=== PATIENT | male | born 1980 | race Caucasian/White ===

== ENCOUNTER 2016-07-02 00:25 | Emergency (ER) | payer OTHER ==
[2016-07-02 00:41] VITALS: TEMP 98.1
--- NOTE | 2016-07-02 01:18 | XR ---
EXAMINATION TYPE: XR finger LT DATE OF EXAM: 07/02/2016 1:13 AM COMPARISON: NONE HISTORY: Puncture wound TECHNIQUE: 3 views FINDINGS: There is soft tissue swelling around the end of the thumb. I see no fracture nor dislocatio n. There is no sign of a foreign body. IMPRESSION: Soft tissue swelling. No fracture seen.
[2016-07-02] MEDS ORDERED: HYDROcodone/APAP 5-325MG 1 EACH TAB PO STA (01:33)
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
[2016-07-02] MEDS ORDERED: SULFAMETHOX-TMP 800-160MG 1 EACH TAB PO STA (02:28)
[2016-07-02] MEDS ORDERED: MORPHINE SULFATE 10 MG/ML SYRINGE IM STA (02:28)
[2016-07-02 02:47] VITALS: BP 159/94; PULSE 68; RESP 18
== END 2016-07-02 02:47 | disposition home or self-care (01) ==
LOC: EC 00:25
DX: L03.012 Cellulitis of left finger (principal); Z88.8 Allergy status to other drugs, medicaments and biological substances; Z87.891 Personal history of nicotine dependence; Z86.14 Personal history of Methicillin resistant Staphylococcus aureus infection
CPT/HCPCS: 99283; 96372; 26010; 87070; 87205; 87077; 87186; 73140; J2270

== ENCOUNTER 2016-08-26 21:22 | Emergency (ER) | payer OTHER ==
[2016-08-26 21:37] VITALS: RESP 20; TEMP 98.2
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
[2016-08-26 23:02] VITALS: BP 151/91; PULSE 65
== END 2016-08-26 23:00 | disposition home or self-care (01) ==
LOC: EC 21:22
DX: S00.03XA Contusion of scalp, initial encounter (principal); Z87.891 Personal history of nicotine dependence; Z88.8 Allergy status to other drugs, medicaments and biological substances; Y04.0XXA Assault by unarmed brawl or fight, initial encounter; Y92.89 Other specified places as the place of occurrence of the external cause
CPT/HCPCS: 70450; 70486; 72125; 99284

== ENCOUNTER 2018-03-19 11:10 | Emergency (ER) | payer OTHER ==
[2018-03-19 11:43] VITALS: BP 118/55; PULSE 106; RESP 18; TEMP 98.3
[2018-03-19] MEDS ORDERED: KETOROLAC 30 MG/ML 1 ML VIAL IM STA (12:07)
[2018-03-19] MEDS ORDERED: ORPHENADRINE 30 MG/ML 2 ML VIAL IM STA (12:07)
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
== END 2018-03-19 13:10 | disposition home or self-care (01) ==
LOC: EC 11:10
DX: M54.5 Low back pain (principal); G89.29 Other chronic pain; M51.36 Other intervertebral disc degeneration, lumbar region; F17.200 Nicotine dependence, unspecified, uncomplicated; Q05.9 Spina bifida, unspecified; Z86.14 Personal history of Methicillin resistant Staphylococcus aureus infection; Z88.8 Allergy status to other drugs, medicaments and biological substances
CPT/HCPCS: 99283; 96372 ×2; J2360; J1885

== ENCOUNTER 2018-03-20 22:20 | Emergency (ER) | payer OTHER ==
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
[2018-03-21 01:11] LABS: Amphetamine Screen,Urine Detected (NotDetected); Barbiturate Screen,Urine Not Detected (NotDetected); Benzodiazepines Screen,Urine Not Detected (NotDetected); Cocaine Screen,Urine Not Detected (NotDetected); Methadone Screen, Urine Not Detected (NotDetected); Opiate Screen,Urine Not Detected (NotDetected); Oxycodone Screen, Urine Not Detected (NotDetected); Phencyclidine Screen,Urine Not Detected (NotDetected); Tricyclic Antidepressant,Urine Not Detected (NotDetected); Urn Cannabinoid Scrn Detected (NotDetected)
[2018-03-21 03:55] VITALS: BP 126/61; PULSE 74; RESP 16; TEMP 97.4
== END 2018-03-21 03:56 | disposition home or self-care (01) ==
LOC: EC 22:20
DX: F32.9 Major depressive disorder, single episode, unspecified (principal); F41.9 Anxiety disorder, unspecified; F17.200 Nicotine dependence, unspecified, uncomplicated; Z86.14 Personal history of Methicillin resistant Staphylococcus aureus infection; Z88.8 Allergy status to other drugs, medicaments and biological substances; Z59.0 Homelessness
CPT/HCPCS: 80306; 82075; 99284

== ENCOUNTER 2018-04-15 21:13 | Emergency (ER) | payer OTHER ==
[2018-04-15 21:45] VITALS: RESP 18
[2018-04-15] MEDS ORDERED: methylPREDNISolone SOD SUCCI 125 MG/2 ML VIAL IM ONE (21:59)
[2018-04-15] MEDS ORDERED: KETOROLAC 30 MG/ML 1 ML VIAL IM STA (21:59)
[2018-04-15] MEDS ORDERED: CYCLOBENZAPRINE 10MG STARTER 3 TAB BTL PO STA (21:59)
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
[2018-04-15 22:28] VITALS: BP 154/85; PULSE 90; TEMP 97
== END 2018-04-15 22:27 | disposition home or self-care (01) ==
LOC: EC 21:13
DX: G89.29 Other chronic pain (principal); M54.5 Low back pain; M54.12 Radiculopathy, cervical region; F17.200 Nicotine dependence, unspecified, uncomplicated; Z88.8 Allergy status to other drugs, medicaments and biological substances
CPT/HCPCS: 99283; 96372 ×2; J2930; J1885

== ENCOUNTER 2018-06-02 16:51 | Emergency (ER) | payer OTHER ==
[2018-06-02] MEDS ORDERED: KETOROLAC 30 MG/ML 1 ML VIAL IVP STA (17:19)
[2018-06-02] MEDS ORDERED: guaiFENesin-DM 600/30MG 1 EACH TAB.ER.12H PO STA (17:19)
[2018-06-02] MEDS ORDERED: SODIUM CHLORIDE 0.9% 1,000 ML IV ONE (17:19)
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
[2018-06-02 18:20] LABS: Basophils % (A) 0 %; Eosinophils # (A) 0.2 k/uL (0-0.7); Eosinophils % (A) 4 %; HCT 39.1 % (39.0-53.0); HGB 13.2 gm/dL (13.0-17.5); Lymphocytes # (A) 0.7 k/uL (1.0-4.8); Lymphocytes % (A) 11 %; MCH 32.6 pg (25.0-35.0); MCHC 33.6 g/dL (31.0-37.0); MCV 96.9 fL (80.0-100.0); Mean Platelet Volume 6.5; Monocytes # (A) 0.3 k/uL (0-1.0); Monocytes % (A) 4 %; Neutrophils # (A) 4.8 k/uL (1.3-7.7); Neutrophils % (A) 80 %; Platelet Count 368 k/uL (150-450); RBC 4.04 m/uL (4.30-5.90); RDW 13.7 % (11.5-15.5)
[2018-06-02 18:33] LABS: ALT 47 U/L (21-72); AST 47 U/L (17-59); Alkaline Phosphatase 66 U/L (38-126); Anion Gap 4 mmol/L; Blood Urea Nitrogen 14 mg/dL (9-20); Calcium 8.9 mg/dL (8.4-10.2); Carbon Dioxide 27 mmol/L (22-30); Chloride 106 mmol/L (98-107); Glucose 103 mg/dL (74-99); Potassium 4.3 mmol/L (3.5-5.1); Sodium 137 mmol/L (137-145); Total Bilirubin 0.3 mg/dL (0.2-1.3); Total Protein 5.3 g/dL (6.3-8.2)
[2018-06-02 18:36] LABS: INR 0.8 (<1.2); Partial Thromboplastin Time 25.2 sec (22.0-30.0); Prothrombin Time 9.4 sec (9.0-12.0)
[2018-06-02 18:40] LABS: D-Dimer 0.85 mg/L FEU (<0.60)
--- NOTE | 2018-06-02 20:04 | CT ---
CT CHEST FOR PULMONARY EMBOLISM. EXAMINATION TYPE: CT chest angio for PE DATE OF EXAM: 06/02/2018 INDICATION: chest pain CT DLP: 282.9 mGycm, Automated exposure control for dose reduction was used. CONTRAST: Patient injected with 100 mL of Isovue 370. COMPARISON: None TECHNIQUE: CT of the chest is performed on a spiral scan at 2 mm thick sections. Study is performed with intravenous contrast timed for evaluation for pulmonary embolism. This will limit additional po rtions of the evaluation. 3-D MIP images reconstructed by the technologist are reviewed on the compu ter in the coronal and sagittal planes. FINDINGS: No persistent filling defects are evident to suggest an acute pulmonary embolism. No mediastinal or hilar adenopathy enlarged by CT criteria is evident. The ascending aorta diameter at the level of the main pulmonary artery is 3.2 cm. The main pulmonary artery diameter at the bifur cation is 2.6 cm. There is minimal compressive atelectasis within the dependent portions of the lung bases. Lungs other thomas appear clear. Limited CT section through the upper abdomen. There is a large amount of debris within the stomach. IMPRESSIONS: 1. No acute pulmonary embolism.
[2018-06-02 20:06] VITALS: RESP 18
--- NOTE | 2018-06-02 20:35 | XR ---
EXAMINATION TYPE: XR chest 2V DATE OF EXAM: 06/02/2018 COMPARISON: 06/26/2015 INDICATION: Pain TECHNIQUE: Frontal and lateral views of the chest are obtained. FINDINGS: The heart size is normal. The pulmonary vasculature is normal. Subtle infiltrate is at the right base. Correlate for early pneumonia or atelectasis. IMPRESSION: 1. There may be an early right lower lobe pneumonia. Clinical correlation is recommended. Follow-up c an be performed as clinically indicated.
[2018-06-02] MEDS ORDERED: ACETAMINOPHEN TAB 500 MG TAB PO STA (21:12)
[2018-06-02 21:23] VITALS: BP 130/95; PULSE 89; TEMP 98
== END 2018-06-02 21:23 | disposition home or self-care (01) ==
LOC: EC 16:51
DX: J20.9 Acute bronchitis, unspecified (principal); F17.210 Nicotine dependence, cigarettes, uncomplicated; Z71.6 Tobacco abuse counseling; Z59.0 Homelessness; Z88.8 Allergy status to other drugs, medicaments and biological substances; Z79.899 Other long term (current) drug therapy
CPT/HCPCS: 36415; 93005; 85379; 80053; 85025; 85610; 85730; 71046; 71275; 99284; 96374; 96361 ×3; J1885; Q9967

== ENCOUNTER 2018-07-12 16:20 | Emergency (ER) | payer OTHER ==
[2018-07-12 16:26] VITALS: BP 164/92; PULSE 99; RESP 18; TEMP 98.1
--- NOTE | 2018-07-12 17:26 | XR ---
Left hand 3 views. History pain. Comparison none. Findings There is soft tissue swelling around the hand. There is slight widening of the joint space between th e third and fourth base of the metacarpals. The carpal bones appear intact. Distal radius and ulna ap pear intact. IMPRESSION: Soft tissue swelling. Evidence of ligamentous tear at the base of the third and fourth metacarpals.
[2018-07-12] MEDS ORDERED: Acetaminophen-Codeine 300-30mg TAB PO STA (18:11)
[2018-07-12] MEDS ORDERED: IBUPROFEN 600 MG STARTER PACK 4 TAB BTL PO STA (18:11)
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
== END 2018-07-12 18:44 | disposition home or self-care (01) ==
LOC: EC 16:20
DX: S60.222A Contusion of left hand, initial encounter (principal); Q05.9 Spina bifida, unspecified; F17.200 Nicotine dependence, unspecified, uncomplicated; Z88.8 Allergy status to other drugs, medicaments and biological substances; Z86.14 Personal history of Methicillin resistant Staphylococcus aureus infection; Z87.81 Personal history of (healed) traumatic fracture; Z59.0 Homelessness; W19.XXXA Unspecified fall, initial encounter; Y92.009 Unspecified place in unspecified non-institutional (private) residence as the place of occurrence of the external cause
CPT/HCPCS: 29125; 99283

== ENCOUNTER 2019-12-03 19:08 | Emergency (ER) | payer OTHER ==
[2019-12-03] MEDS ORDERED: ASPIRIN 81 MG PO STA (19:32)
[2019-12-03] MEDS ORDERED: SODIUM CHLORIDE 0.9% 500 ML 500 ML IV STA (19:32)
[2019-12-03] MEDS ORDERED: ACETAMINOPHEN TAB 325 MG TAB PO STA (19:34)
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
--- NOTE | 2019-12-03 20:03 | XR ---
EXAMINATION TYPE: XR chest 2V DATE OF EXAM: 12/03/2019 COMPARISON: Chest pain for 3 weeks. HISTORY: Chest x-ray June 02, 2018. TECHNIQUE: Frontal and lateral views of the chest are obtained. FINDINGS: Overlying EKG leads currently. There is no focal air space opacity, pleural effusion, or pn eumothorax seen. The cardiac silhouette size remains within normal limits. The osseous structures are intact. IMPRESSION: No acute cardiopulmonary process. No significant change from prior.
[2019-12-03 20:11] LABS: Basophils % (A) 0 %; Eosinophils # (A) 0.1 k/uL (0-0.7); Eosinophils % (A) 2 %; HCT 44.7 % (39.0-53.0); HGB 15.4 gm/dL (13.0-17.5); Lymphocytes # (A) 1.5 k/uL (1.0-4.8); Lymphocytes % (A) 18 %; MCH 33.3 pg (25.0-35.0); MCHC 34.5 g/dL (31.0-37.0); MCV 96.4 fL (80.0-100.0); Mean Platelet Volume 7.2; Monocytes # (A) 0.4 k/uL (0-1.0); Monocytes % (A) 4 %; Neutrophils # (A) 6.1 k/uL (1.3-7.7); Neutrophils % (A) 74 %; Platelet Count 297 k/uL (150-450); RBC 4.64 m/uL (4.30-5.90); RDW 12.9 % (11.5-15.5); WBC 8.1 k/uL (3.8-10.6)
[2019-12-03 20:19] LABS: ALT 22 U/L (4-49); AST 34 U/L (17-59); African American GFR (CKD) >90 (>60 ml/min/1.73 sqM); Albumin 4.5 g/dL (3.5-5.0); Alkaline Phosphatase 53 U/L (38-126); Anion Gap 7 mmol/L; Blood Urea Nitrogen 16 mg/dL (9-20); Calcium 9.4 mg/dL (8.4-10.2); Carbon Dioxide 25 mmol/L (22-30); Chloride 105 mmol/L (98-107); Glucose 110 mg/dL (74-99); Magnesium 1.8 mg/dL (1.6-2.3); Non-African American GFR(CKD) >90 (>60 ml/min/1.73 sqM); Potassium 4.2 mmol/L (3.5-5.1); Sodium 137 mmol/L (137-145); Total Bilirubin 0.5 mg/dL (0.2-1.3); Total Protein 6.8 g/dL (6.3-8.2)
[2019-12-03 20:21] LABS: D-Dimer 0.18 mg/L FEU (<0.60); INR 0.9 (<1.2); Partial Thromboplastin Time 23.3 sec (22.0-30.0); Prothrombin Time 9.8 sec (9.0-12.0)
[2019-12-03 20:48] VITALS: BP 138/96; PULSE 67; RESP 19; TEMP 98
[2019-12-03] MEDS ORDERED: MORPHINE SULFATE 4 MG/ML SYRINGE IV STA (20:50)
== END 2019-12-03 21:58 | disposition home or self-care (01) ==
LOC: EC 19:08
DX: R07.89 Other chest pain (principal); M79.18 Myalgia, other site; R05 Cough; F17.200 Nicotine dependence, unspecified, uncomplicated; Z88.8 Allergy status to other drugs, medicaments and biological substances; Z86.14 Personal history of Methicillin resistant Staphylococcus aureus infection; Z20.828 Contact with and (suspected) exposure to other viral communicable diseases
CPT/HCPCS: 99285; 96374; 96361; 36415; 93005; 85379; 80053; 83735; 84484; 85025; 85610; 85730; 71046; U0003; J2270

== ENCOUNTER 2022-04-02 13:30 | Emergency (ER) | payer OTHER ==
[2022-04-02 14:22] VITALS: TEMP 98.5
[2022-04-02] MEDS ORDERED: KETOROLAC 15 MG/ML 1 ML VIAL IM STA (17:59)
[2022-04-02] MEDS ORDERED: ORPHENADRINE 30 MG/ML 2 ML VIAL IM STA (17:59)
[2022-04-02] MEDS ORDERED: PHENYLEPHRINE 0.25% NASAL SPRA 1 SPRAY/ML NASAL STA (18:00)
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
[2022-04-02] MEDS ORDERED: HYDROcodone/APAP 5-325MG 1 EACH TAB PO STA (19:10)
--- NOTE | 2022-04-02 19:22 | CT ---
EXAMINATION TYPE: CT facial bones wo con DATE OF EXAM: 04/02/2022 COMPARISON: 08/26/2016 HISTORY: Facial injury. Trauma. Pain. CT DLP: 618.8 mGycm Automated exposure control for dose reduction was used. Images obtained from the bottom of the mandible to the top of the frontal sinuses with no contrast. The mandibular ring is intact. The temporomandibular joints appear normal. The zygomatic arches appea r intact. There is a comminuted fracture of the nasal bone with some mild posterior displacement. The re is soft tissue swelling around the nasal bone. There is small mucous retention cyst left maxillary sinus. There is normal aeration of the temporal bones. There is mild mucosal thickening anterior eth moid air cells. There is increased density in the anterior nasopharynx consistent with blood clot and debris. There is no evidence of orbital blowout fracture. Orbital margins are intact. No retro-orbital mass. The maxillary spine is intact. Sphenoid bone appears normal. IMPRESSION: Nasal bone fracture. No other fracture seen.
--- NOTE | 2022-04-02 19:23 | XR ---
EXAMINATION TYPE: XR chest 2V DATE OF EXAM: 04/02/2022 COMPARISON: 12/03/2019 HISTORY: Fall. Chest pain TECHNIQUE: 2 views FINDINGS: Heart and mediastinum are normal. Lungs are clear. Diaphragm is normal. Bony thorax is inta ct. IMPRESSION: Normal chest. No change.
[2022-04-02] MEDS ORDERED: DIPH,PERTUS(ACELL)TETVAC-LF 0.5 ML VIAL IM ONE (19:24)
--- NOTE | 2022-04-02 19:24 | XR ---
EXAMINATION TYPE: XR lumbar spine 2 or 3V DATE OF EXAM: 04/02/2022 COMPARISON: 07/25/2011 HISTORY: Pain TECHNIQUE: 3 views FINDINGS: There is L5 spondylolysis. There is a second-degree L5-S1 spondylolisthesis. Displacement i s 1.5 cm. No compression fracture. Disc spaces are fairly normal. The sacroiliac joints are normal. IMPRESSION: There is L5-S1 spondylolisthesis that has progressed compared to old exam. No acute fract ure seen.
[2022-04-02 20:32] VITALS: BP 162/116; PULSE 86; RESP 16
== END 2022-04-02 20:58 | disposition home or self-care (01) ==
LOC: EC 13:30
DX: S60.811A Abrasion of right wrist, initial encounter (principal); I10 Essential (primary) hypertension; Z88.8 Allergy status to other drugs, medicaments and biological substances; W10.9XXA Fall (on) (from) unspecified stairs and steps, initial encounter
CPT/HCPCS: 99284; 96372 ×3; 72100; 71046; 70486; 90715; J2360; J1885

== ENCOUNTER 2022-04-06 15:45 | Observation (INO) | payer OTHER ==
[2022-04-06] MEDS ORDERED: SODIUM CHLORIDE 0.9% 1,000 ML IV ONE ×2 (16:01→19:48)
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
[2022-04-06] MEDS ORDERED: LORazepam 2 MG/ML INJ IV STA (17:30)
[2022-04-06] MEDS ORDERED: ZIPRASIDONE 20 MG VIAL IM STA (18:57)
[2022-04-06] MEDS ORDERED: THIAMINE 100 MG/ML 2 ML VIAL IM STA (19:49)
[2022-04-06] MEDS ORDERED: LORazepam 2 MG/ML INJ IV PRN (19:49)
[2022-04-06 20:12] LABS: Basophils # (A) 0.1 k/uL (0-0.2); Basophils % (A) 1 %; Eosinophils # (A) 0.1 k/uL (0-0.7); Eosinophils % (A) 2 %; HCT 43.1 % (39.0-53.0); HGB 15.3 gm/dL (13.0-17.5); Lymphocytes # (A) 1.8 k/uL (1.0-4.8); Lymphocytes % (A) 21 %; MCH 34.3 pg (25.0-35.0); MCHC 35.6 g/dL (31.0-37.0); MCV 96.3 fL (80.0-100.0); Mean Platelet Volume 7.7; Monocytes # (A) 0.5 k/uL (0-1.0); Monocytes % (A) 6 %; Neutrophils # (A) 5.8 k/uL (1.3-7.7); Neutrophils % (A) 69 %; Platelet Count 255 k/uL (150-450); RBC 4.47 m/uL (4.30-5.90); RDW 12.6 % (11.5-15.5); WBC 8.4 k/uL (3.8-10.6)
[2022-04-06 20:41] LABS: Amphetamine Screen,Urine Not Detected (NotDetected); Barbiturate Screen,Urine Not Detected (NotDetected); Benzodiazepines Screen,Urine Detected (NotDetected); Cocaine Screen,Urine Not Detected (NotDetected); Methadone Screen, Urine Not Detected (NotDetected); Opiate Screen,Urine Detected (NotDetected); Oxycodone Screen, Urine Detected (NotDetected); Phencyclidine Screen,Urine Not Detected (NotDetected); Tricyclic Antidepressant,Urine Not Detected (NotDetected); Urn Cannabinoid Scrn Detected (NotDetected)
[2022-04-06] MEDS ORDERED: OLANZapine 10 MG VIAL IM STA (20:42)
[2022-04-06 21:44] LABS: ALT 26 U/L (4-49); AST 34 U/L (17-59); African American GFR (CKD) >90 (>60 ml/min/1.73 sqM); Albumin 4.1 g/dL (3.5-5.0); Albumin/Globulin Ratio 1.8; Alkaline Phosphatase 55 U/L (38-126); Anion Gap 8 mmol/L; Blood Urea Nitrogen 18 mg/dL (9-20); Calcium 8.6 mg/dL (8.4-10.2); Carbon Dioxide 25 mmol/L (22-30); Chloride 109 mmol/L (98-107); Globulin 2.3 g/dL; Glucose 97 mg/dL (74-99); Non-African American GFR(CKD) >90 (>60 ml/min/1.73 sqM); Potassium 3.8 mmol/L (3.5-5.1); Sodium 142 mmol/L (137-145); Total Bilirubin 0.4 mg/dL (0.2-1.3); Total Protein 6.4 g/dL (6.3-8.2)
[2022-04-07] MEDS ORDERED: LORazepam 1 MG/0.5 ML VIAL IV PRN ×3 (00:04→14:15)
[2022-04-07] MEDS: chlordiazePOXIDE 25 MG CAP PO STA ×2 (00:19→06:02)
[2022-04-07] MEDS: DEXTROSE 5%-0.45% NACL 1,000 ML IV SCH ×3 (00:24→19:07)
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
[2022-04-07] MEDS: ENOXAPARIN 40 MG/0.4 ML SYRINGE SQ SCH (09:06)
--- NOTE | 2022-04-07 11:31 | P.PN ---
Subjective Progress Note Date: 04/07/22 Principal diagnosis: alcohol intoxication Hospital Course: 41-year-old male with history of morbid disorder, polysubstance abuse and alcohol dependence presenting after being found normal parking lot. Patient was acutely intoxicated, endorsing suicidal ideations. On initial presentation, he was tachycardic, rest of the vital signs were otherwise unremarkable. Lab work showed serum alcohol level of 303, urine toxicology was positive for opiates, oxycodone, benzodiazepine, and marijuana. Rest of the lab work was otherwise unremarkable. Patient has a bedside sitter, and psychiatry consult pending. Subjective: Patient seen and examined at bedside. No acute events overnight. He claims that he really needs help for his depression and suicidal ideations. He claims that is currently homeless for the last 2 weeks. He has been drinking heavily, unable to specify how much. He denies taking any other drugs. He claims that drugs found evidence urine were from his recent hospitalization. He denies any abdominal pain, chest pain, shortness of breath, urinary or bowel complaints. Pertinent positives and negatives as discussed above, a complete review of systems was performed and all other systems are negative. Vitals Signs Reviewed. General: nontoxic, no distress, appears at stated age Derm: warm, dry Head: atraumatic, normocephalic, symmetric Eyes: EOMI, no lid lag, anicteric sclera Mouth: no lip lesion, mucus membranes moist Cardiovascular: S1S2 reg, no murmur Lungs: CTA bilateral, no rhonchi, no rales , no accessory muscle use Abdominal: soft, nontender to palpation, no guarding, no appreciable organomegaly Ext: no gross muscle atrophy, no edema, no contractures Neuro: CN II-XI grossly intact, no focal neuro deficits Psych: Alert, oriented, anxious appearing Assessment and Plan: Acute alcohol intoxication Polysubstance abuse -Monitor for alcohol withdrawal -Benzos PRN, CIWA -Thiamine, folic acid and IV fluids -Seizure cautions, fall precautions Mood disorder Suicidal ideation -Psychiatry evaluation -Continue bedside sitter for for now -Suicide precautions -Patient has been trying to get into a rehab facility, unable to Homelessness DVT prophylaxis Lovenox Full code Anticipated discharge place: Pending psychiatry evaluation Anticipated discharge time: 1-2 days Objective - Vital Signs Vital signs: Vital Signs Temp 97.8 F 04/06/22 15:59 Pulse 68 04/07/22 02:00 Resp 18 04/07/22 02:00 BP 129/92 04/07/22 02:00 Pulse Ox 96 04/07/22 02:00 FiO2 Intake & Output 04/06/22 04/07/22 04/07/22 18:59 06:59 18:59 Output Total 150 Balance -150 Weight 68.039 kg Output: Urine 150 Other: Voiding Method External Catheter - Labs CBC & Chem 7: 04/06/22 19:51 04/06/22 21:10 Labs: Abnormal Lab Results - Last 24 Hours (Table) 04/06/22 04/06/22 04/06/22 Range/Units 16:02 19:51 21:10 Chloride 109 H (98-107) mmol/L Urine Opiates Screen Detected H (NotDetected) Ur Oxycodone Screen Detected H (NotDetected) U Benzodiazepines Scrn Detected H (NotDetected) U Marijuana (THC) Screen Detected H (NotDetected) Serum Alcohol 303 H* mg/dL
[2022-04-07] MEDS ORDERED: OLANZapine 10 MG VIAL IM PRN (12:53)
[2022-04-07] MEDS: FOLIC ACID 1 MG TAB PO SCH (13:01)
[2022-04-07] MEDS: THIAMINE 100 MG TAB PO SCH (13:01)
[2022-04-07] MEDS: ACETAMINOPHEN TAB 325 MG TAB PO PRN ×2 (13:02→19:42)
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
[2022-04-07] MEDS ORDERED: PRAZOSIN 1 MG CAP PO SCH (21:00)
[2022-04-08] MEDS: THIAMINE 100 MG TAB PO SCH (08:47)
[2022-04-08] MEDS: SERTRALINE 50 MG TAB PO SCH ×2 (08:47→13:34)
[2022-04-08] MEDS: DEXTROSE 5%-0.45% NACL 1,000 ML IV SCH ×3 (08:47→18:40)
[2022-04-08] MEDS: ACETAMINOPHEN TAB 325 MG TAB PO PRN (08:47)
[2022-04-08] MEDS: FOLIC ACID 1 MG TAB PO SCH (08:47)
[2022-04-08] MEDS: ENOXAPARIN 40 MG/0.4 ML SYRINGE SQ SCH (08:48)
--- NOTE | 2022-04-08 13:31 | P.PN ---
Progress Note - Text Progress Note Date: 04/08/22 Interval History: Patient was seen resting in bed and was directable and agreeable to speak with medical underwriter in the office. Currently, the patient continues endorse suicidal ideation but states that he is feeling better than yesterday. Reports that he was able to sleep last night but continues to experience nightmares. He is otherwise denying any auditory or visual hallucinations. He is denying any paranoia or other delusions. He is requesting to be placed on Wellbutrin i nstead of Zoloft as he felt that Wellbutrin was beneficial the past and that knowing that he cannot drink on this medication would stop him from drinking. It was discussed that we will discuss this when he is admitted onto the psychiatric unit. Mental Status Exam: General Appearance: Patient appears to be stated age is alert, directable, and cooperative. Behavior: Patient is calmly seated without any agitated behavior. Speech: Patient's speech is fluent and nonpressured. Mood/Affect: Mood is improving mildly, affect is congruent and constricted. Suicidality/Homicidality: Patient reports suicidal ideation. Perceptions: Patient denies any visual hallucinations and denies any auditory hallucinations Though content/process: There is no evidence of any delusional thought content and thought process is linear and goal-directed. Memory and concentration: AOX3, grossly intact for the purposes of this session Judgment and insight: Improving mildly Vital Signs Temp 97.7 F 04/08/22 01:02 Pulse 76 04/08/22 01:14 Resp 16 04/08/22 01:14 BP 144/89 04/08/22 01:02 Pulse Ox 97 04/08/22 01:02 FiO2 Intake & Output 04/07/22 04/08/22 04/08/22 18:59 06:59 18:59 Intake Total 118 118 Balance 118 118 Weight 68.039 kg Intake: Oral 118 118 Other: Voiding Method External Catheter # Voids 1 Assessment Major Depressive Disorder, recurrent, severe, with psychotic features Posttraumtic Stress Disorder Alcohol Use Disorder Rule out opiate use disorder Rule out Cluster B Personality Disorer Plan: -Patient continues to meet criteria for inpatient psychiatric admission for symptom stabilization and safety. Patient has signed adult voluntary form and medication consent and was placed in patient's chart. -Medications: Continue prazosin 2 mg by mouth at bedtime for PTSD related nightmares Hold Zoloft -When necessary Zyprexa for agitation/aggression. -SW on board for discharge planning. Encouraged the patient to participate in milieu.
[2022-04-08 13:33] VITALS: RESP 18
[2022-04-08 13:35] VITALS: BP 143/95; PULSE 67; TEMP 96.9
[2022-04-08] MEDS: chlordiazePOXIDE 25 MG CAP PO SCH ×2 (13:45→18:38)
--- NOTE | 2022-04-09 16:57 | P.DS ---
Providers Date of admission: 04/06/22 19:50 Expected date of discharge: 04/08/22 Attending physician: Aditya Rodríguez MD Consults: 04/06/22 19:48 Consult Physician Urgent Consulting Provider: Coleman Cam Consult Reason/Comments: Suicidal thoughts Do you want consulting provider notified?: Yes Primary care physician: Stated None Hospital Course: Delayed charting seen on 04/08/22. Discharge Diagnosis: Acute alcohol intoxication Polysubstance abuse Mood disorder Suicidal ideation Hospital Course: Patient is a 41-year-old male with history of morbid disorder, polysubstance abuse and alcohol dependence presenting after being found normal parking lot. Patient was acutely intoxicated, endorsing suicidal ideations. On initial presentation, he was tachycardic, rest of the vital signs were otherwise unremarkable. Lab work showed serum alcohol level of 303, urine toxicology was positive for opiates, oxycodone, benzodiazepine, and marijuana. Rest of the lab work was otherwise unremarkable. He was seen by psychiatry who recommended inpatient mental health treatment. Patient seen and examined at bedside. He denies any chest pain, shortness of breath, nausea, vomiting Vital signs reviewed and stable. General: nontoxic, no distress, appears at stated age Derm: warm, dry, scarring chest wall, multiple tattoos Head: atraumatic, normocephalic, symmetric Eyes: EOMI, no lid lag, anicteric sclera Mouth: no lip lesion, mucus membranes moist Cardiovascular: S1S2 reg, no murmur, positive posterior tibial pulse bilateral, Lungs: Decreased breath sounds bilateral, no rhonchi, no rales , no accessory muscle use Abdominal: soft, nontender to palpation, no guarding, no appreciable organ omegaly Ext: no gross muscle atrophy, no edema, no contractures Neuro: CN II-XI grossly intact, no focal neuro deficits Psych: Alert, oriented, appropriate affect A total of 25 minutes of time were spent preparing this complex discharge summary. Patient was discharged on 04/09/22. Patient Condition at Discharge: Stable Plan - Discharge Summary Discharge Rx Participant: Yes New Discharge Prescriptions: New Folic Acid 1 mg PO DAILY tab Acetaminophen Tab [Tylenol] 650 mg PO Q6HR PRN tab PRN Reason: Fever And/ Or Pain chlordiazePOXIDE HCl [Librium] 25 mg PO TID cap Prazosin [Minipress] 2 mg PO HS cap Thiamine [Vitamin B-1] 100 mg PO DAILY tab Discharge Medication List Acetaminophen Tab [Tylenol] 650 mg PO Q6HR PRN tab 04/08/22 [Rx] Folic Acid 1 mg PO DAILY tab 04/08/22 [Rx] Prazosin [Minipress] 2 mg PO HS cap 04/08/22 [Rx] Thiamine [Vitamin B-1] 100 mg PO DAILY tab 04/08/22 [Rx] chlordiazePOXIDE HCl [Librium] 25 mg PO TID cap 04/08/22 [Rx] Follow up Appointment(s)/Referral(s): None,Stated [Primary Care Provider] - 1-2 days Patient Instructions/Handouts: Depression (DC), Anxiety (ED), Suicide Prevention (DC) Discharge/Stand Alone Forms: AA Zain Villatoro, Who Do I Call?, Community Resources, Outpatient Counseling, Inp Substance Abuse Facilities Discharge Disposition: TRANSFER TO PSYCH HOSP/UNIT
== END 2022-04-08 18:57 ==
LOC: EC 15:45 → 6NMEDSUR 19:50 → 3SCARD 20:22
PROVIDERS: ADMIT Internal Medicine; ATTEND Internal Medicine
DX: F10.229 Alcohol dependence with intoxication, unspecified (principal); F31.9 Bipolar disorder, unspecified; F20.9 Schizophrenia, unspecified; F11.10 Opioid abuse, uncomplicated; F13.10 Sedative, hypnotic or anxiolytic abuse, uncomplicated; F43.10 Post-traumatic stress disorder, unspecified; R45.851 Suicidal ideations; I10 Essential (primary) hypertension; H40.9 Unspecified glaucoma; M19.90 Unspecified osteoarthritis, unspecified site; Q05.9 Spina bifida, unspecified; F41.9 Anxiety disorder, unspecified; Y90.8 Blood alcohol level of 240 mg/100 ml or more; Z88.8 Allergy status to other drugs, medicaments and biological substances; Z78.1 Physical restraint status; Z59.00 Homelessness unspecified; Z62.810 Personal history of physical and sexual abuse in childhood; Z87.828 Personal history of other (healed) physical injury and trauma; Z86.14 Personal history of Methicillin resistant Staphylococcus aureus infection
CPT/HCPCS: 96376; 96372; 96374; 99291; 36415; 80053; 84445; 83735; 85025; 80306; 87635; G0378 ×3; G0480; J2060; J3411; J3486; 80320

== ENCOUNTER 2022-04-08 14:10 | Inpatient (IN) | payer MEDICAID, OTHER ==
[2022-04-08] MEDS ORDERED: MAG HYDROX/AL HYDROX/SIMETH 30 ML CUP PO PRN (14:23)
[2022-04-08] MEDS ORDERED: MAGNESIUM HYDROXIDE 2,400 MG/10 ML CUP PO PRN (14:23)
[2022-04-08] MEDS ORDERED: hydrOXYzine HCL 50 MG/ML 1 ML VIAL IM PRN (14:26)
[2022-04-08] MEDS ORDERED: haloperidoL 5 MG TAB PO PRN (14:26)
[2022-04-08] MEDS ORDERED: MAG HYDROX/AL HYDROX/SIMETH 355 ML BOTTLE PO PRN (15:07)
[2022-04-08] MEDS: chlordiazePOXIDE 25 MG CAP PO SCH (20:05)
[2022-04-08] MEDS: ACETAMINOPHEN TAB 325 MG TAB PO PRN (20:11)
[2022-04-08] MEDS ORDERED: PRAZOSIN 1 MG CAP PO SCH (21:00)
[2022-04-09 07:23] LABS: ALT 22 U/L (4-49); AST 28 U/L (17-59); Albumin 3.9 g/dL (3.5-5.0); Alkaline Phosphatase 65 U/L (38-126); Bilirubin, Delta 0.3 mg/dL (0.0-0.2); Bilirubin,Unconjugated 0.3 mg/dL (0.0-1.1); Total Bilirubin 0.6 mg/dL (0.2-1.3); Total Protein 6.2 g/dL (6.3-8.2)
[2022-04-09] MEDS: chlordiazePOXIDE 25 MG CAP PO SCH ×2 (09:15→19:58)
[2022-04-09] MEDS: ACETAMINOPHEN TAB 325 MG TAB PO PRN (09:16)
[2022-04-09] MEDS: hydrOXYzine pamoate 25 MG CAP PO PRN ×3 (09:16→20:01)
[2022-04-09] MEDS: FOLIC ACID 1 MG TAB PO SCH (09:17)
[2022-04-09] MEDS: THIAMINE 100 MG TAB PO SCH (09:17)
[2022-04-09] MEDS: NICOTINE 14MG/24HR PATCH TRANSDERM SCH (09:17)
[2022-04-09] MEDS ORDERED: buPROPion XL 150 MG TAB.ER.24H PO STA (09:38)
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
[2022-04-09 15:00] LABS: Chol/HDL Ratio 3.35 Ratio; LDL Cholesterol,Calculated 95.2 mg/dL (0.0-131.0); VLDL Calculation 16.44 mg/dL (5.00-40.00)
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
[2022-04-09] MEDS: LIDOCAINE 5% PATCH TOPICAL SCH (16:31)
[2022-04-09] MEDS: PRAZOSIN 1 MG CAP PO SCH (19:58)
[2022-04-09] MEDS: HALOPERIDOL LACTATE 5 MG/ML 1 ML VIAL IM PRN (20:01)
[2022-04-10] MEDS: FOLIC ACID 1 MG TAB PO SCH (08:59)
[2022-04-10] MEDS: ACETAMINOPHEN TAB 325 MG TAB PO PRN ×3 (08:59→18:46)
[2022-04-10] MEDS: hydrOXYzine pamoate 25 MG CAP PO PRN (08:59)
[2022-04-10] MEDS: THIAMINE 100 MG TAB PO SCH (08:59)
[2022-04-10] MEDS: chlordiazePOXIDE 25 MG CAP PO SCH ×4 (08:59→20:59)
[2022-04-10] MEDS ORDERED: buPROPion XL 150 MG TAB.ER.24H PO SCH (09:00)
[2022-04-10] MEDS: NICOTINE 14MG/24HR PATCH TRANSDERM SCH (09:01)
[2022-04-10] MEDS ORDERED: chlordiazePOXIDE 25 MG CAP PO STA (11:17)
[2022-04-10] MEDS: cloNIDine HCL 0.1 MG TAB PO SCH (13:59)
[2022-04-10] MEDS: LIDOCAINE 5% PATCH TOPICAL SCH (18:18)
--- NOTE | 2022-04-10 19:30 | P.PN ---
Progress Note - Text Progress Note Date: 04/10/22 Interval History: Patient was seen in the interview room and was initially directable and agreeable to speak with journalists and other writers in the office. Patient has had elevated blood pressures. As a result, this provider discussed increasing Librium as well as discontinue Wellbutrin. Patient was extremely agitated upon being told about discontinuing Wellbutrin. He stormed out of the room. A few hours later, patient requested to meet with this provider again. At that time, this provider discussed adding Remeron instead at nighttime and clonidine for anxiety, withdrawal, and blood pressure control. Patient was agreeable with these changes. He reported some trouble sleeping and was agreeable with adding Remeron. He reports adequate appetite. He endorses that his mood has been irritable. He denied side effects to the prazosin and Librium. At this time patient denies any suicidal or homical ideations, intent or plan. Patient denies any auditory, visual hallucinations and denies any paranoia or delusions. Patient has been compliant with his medications. Patient denied symptoms of hypertensive emergency, including dizziness, neuro changes, vision issues, headache, nausea, and vomiting. Mental Status Exam: General Appearance: Patient appears to be stated age is alert, directable, and attempts to cooperate. Patient appears to have improved hygiene and grooming. Long hair. Behavior: Patient is seated but became agitated Speech: Patient's speech is fluent and nonpressured. Mood/Affect: Patient reports their mood is depressed, irritable affect is congruent Suicidality/Homicidality: Patient denies having any homicidal ideation intent or plan. Denies any suicidal ideations intent or plan Perceptions: Patient denies any visual hallucinations and denies any auditory hallucinations Though content/process: There is no evidence of any delusional thought content and thought process is linear and goal-directed. Memory and concentration: AOX3, grossly intact for the purposes of this session. Can spell "WORLD" backwards Judgment and insight: Poor Assessment Major Depressive Disorder, recurrent, severe, with psychotic features Posttraumtic Stress Disorder Alcohol Use Disorder Rule out opiate use disorder Cluster B Personality Disorer Plan: -Patient is admitted under voluntary status to MHU for stabilization of psychiatric symptoms and safety. Patient signed adult voluntary form and medication consent and is placed in patient's chart. -Medications : D/c Wellbutrin XL 150 mg due to elevated BP and seizure risk Cont Prazosin 3 mg by mouth at bedtime for PTSD related nightmares Add Clonidine 0.1 mg daily for anxiety, withdrawal, and blood pressure/HR control Add Remeron 15 mg qHS for mood Increase Librium to 50 mg TID - PRN Vistaril and Haldol for agitation/aggression -CIWA protocol with Librium for ETOH withdrawal. -Patient was counselled on substance abuse and desired to cut back on use -Patient was informed of the risks, benefits and side effects of the medication and patient verbally consented to taking the medications. Patient signed med consent form and was placed in chart. -Internal Medicine consult to perform medical evaluation and physical. -SW on board for discharge planning. Encourage patient to participate in groups to work on coping skills.
[2022-04-10] MEDS: PRAZOSIN 1 MG CAP PO SCH (20:59)
[2022-04-10] MEDS: MIRTAZAPINE 15 MG TAB PO SCH (20:59)
[2022-04-11] MEDS: FOLIC ACID 1 MG TAB PO SCH (09:09)
[2022-04-11] MEDS: hydrOXYzine pamoate 25 MG CAP PO PRN (09:09)
[2022-04-11] MEDS: cloNIDine HCL 0.1 MG TAB PO SCH (09:09)
[2022-04-11] MEDS: THIAMINE 100 MG TAB PO SCH (09:09)
[2022-04-11] MEDS ORDERED: amLODIPine 2.5 MG TAB PO SCH (11:00)
[2022-04-11] MEDS ORDERED: ASPIRIN 81 MG PO STA (11:26)
[2022-04-11] MEDS ORDERED: chlordiazePOXIDE 25 MG CAP PO STA (12:41)
--- NOTE | 2022-04-11 12:46 | P.PN ---
Progress Note - Text Progress Note Date: 04/11/22 Received paged to come and evaluate patient for hypertension patient's blood pressure has been ranging 130s to 150s systolic over 90s to 100s diastolic and was informed patient was now experiencing chest tightness/pain. STAT orders placed for EKG and troponins. Went to bedside to evaluate. Upon evaluation patient reports he was experiencing 4 out of 10 pain/tightness to his midsternal chest. Patient reports this started while he was lying in bed and reports that he felt "stuck" to his bed almost like he was too heavy and could not lift his arms or legs or anything up. Patient then states once he was able to get up he felt "whoozy" so he went into the bathroom. Patient reports he then felt that the room was closing up on him and the chan were closing in and this is when he developed some chest tightness. BP 157/96 and heart rate 85 at this time. Patient's explanations of symptoms are concerning for underlying anxiety/panic attack and also concerning for withdrawal. Patient reports his last alcoholic drink was on 04/06/22 and patient also has a history of polysubstance abuse with opiates, oxycodone, benzodiazepines, and marijuana. Physical examination: General: non toxic, no distress, appears at stated age Derm: warm, dry Head: atraumatic, normocephalic, symmetric Eyes: EOMI, no lid lag, anicteric sclera Mouth: no lip lesion, mucus membranes moist Cardiovascular: S1S2 reg, no murmur, positive posterior tibial pulse bilateral, Lungs: CTA bilateral, no rhonchi, no rales , no accessory muscle use Abdominal: soft, nontender to palpation, no guarding, no appreciable organomegaly Ext: no gross muscle atrophy, no edema, no contractures Neuro: CN II-XI grossly intact, no focal neuro deficits Psych: Alert, oriented, appropriate affect EKG unremarkable showing normal sinus rhythm at 65 bpm with no noted T-wave or ST abnormalities showing no signs of acute ischemia. Patient physically showing no signs of acute distress upon physical examination and walking up and down the hallway with a steady ambulatory gait. Awaiting troponins to result. At this time do not recommend starting patient on antihypertensive medication regimen as hypertension is likely resulting due to agitation and withdrawal. Recommend increasing clonidine to 0.2 mg twice a day and continued monitoring. Called to follow-up on troponins at 1:30 PM and RN reports awaiting lab draw. RN instructed to notify provider of any abnormal findings. I reviewed the documentation as provided by the ZAINAB above, who is the original author of this note. I agree with the documented assessment and plan, with the following changes: none
[2022-04-11] MEDS: ACETAMINOPHEN TAB 325 MG TAB PO PRN (13:27)
[2022-04-11] MEDS ORDERED: IBUPROFEN 600 MG TAB PO PRN (13:30)
--- NOTE | 2022-04-11 16:55 | P.PN ---
Progress Note - Text Progress Note Date: 04/11/22 Interval History: Patient was seen in the interview room. Patient reported having substernal ch est pressure upon awakening this morning. It was not reproducible with movement or activity. He was given clonidine 0.1 mg this morning for blood pressure and his blood pressure has been improving. He was given aspirin 81 mg once. EKG showed normal sinus rhythm without any ST segment changes. Trops not elevated. IM team ordered one time Norvasc. He reported good sleep with Remeron but reports feeling dizzy in the morning. He reports adequate appetite. He is more future oriented. At this time patient denies any suicidal or homical ideations, intent or plan. Patient denies any auditory, visual hallucinations and denies any paranoia or delusions. Patient has been compliant with his medications and denies side effects otherwise. Patient denied symptoms of hypertensive emergency, including dizziness, neuro changes, vision issues, headache, nausea, and vomiting. Mental Status Exam: General Appearance: Patient appears to be stated age is alert, directable, and attempts to cooperate. Patient appears to have improved hygiene and grooming. Long hair. Behavior: Patient is seated and more cooperative Speech: Patient's speech is fluent and nonpressured. Mood/Affect: Patient reports their mood is depressed, irritable affect is congruent Suicidality/Homicidality: Patient denies having any homicidal ideation intent or plan. Denies any suicidal ideations intent or plan Perceptions: Patient denies any visual hallucinations and denies any auditory hallucinations Though content/process: There is no evidence of any delusional thought content and thought process is linear and goal-directed. Memory and concentration: AOX3, grossly intact for the purposes of this session. Can spell "WORLD" backwards Judgment and insight: Poor Assessment Major Depressive Disorder, recurrent, severe, with psychotic features Posttraumtic Stress Disorder Alcohol Use Disorder Rule out opiate use disorder Cluster B Personality Disorer Plan: -Patient is admitted under voluntary status to MHU for stabilization of psychiatric symptoms and safety. Patient signed adult voluntary form and medication consent and is placed in patient's chart. -Medications : D/c Wellbutrin XL 150 mg due to elevated BP and seizure risk Cont Prazosin 3 mg by mouth at bedtime for PTSD related nightmares Continue Clonidine daily for anxiety, withdrawal, and blood pressure/HR control - increased to 0.2 mg by IM Continue Remeron 15 mg qHS for mood Given Librium 50 mg once today and may stop tomorrow. Today is day 5 of alcohol withdrawal - PRN Vistaril and Haldol for agitation/aggression -Discontinuing CIWA today -Patient was counselled on substance abuse and desired to cut back on use -Patient was informed of the risks, benefits and side effects of the medication and patient verbally consented to taking the medications. Patient signed med consent form and was placed in chart. -Internal Medicine consult to perform medical evaluation and physical. -SW on board for discharge planning. Encourage patient to participate in groups to work on coping skills.
[2022-04-11] MEDS: LIDOCAINE 5% PATCH TOPICAL SCH (17:02)
[2022-04-11] MEDS: HALOPERIDOL LACTATE 5 MG/ML 1 ML VIAL IM PRN (18:15)
[2022-04-11] MEDS: PRAZOSIN 1 MG CAP PO SCH (23:40)
[2022-04-11] MEDS: cloNIDine HCL 0.2 MG TAB PO SCH (23:42)
[2022-04-11] MEDS: MIRTAZAPINE 15 MG TAB PO SCH (23:42)
[2022-04-12 06:43] VITALS: BP 130/74; PULSE 58; RESP 18; TEMP 98.2
[2022-04-12] MEDS: cloNIDine HCL 0.2 MG TAB PO SCH (08:31)
[2022-04-12] MEDS: THIAMINE 100 MG TAB PO SCH (08:31)
[2022-04-12] MEDS: FOLIC ACID 1 MG TAB PO SCH (08:32)
[2022-04-12] MEDS: ACETAMINOPHEN TAB 325 MG TAB PO PRN (10:17)
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
== END 2022-04-12 13:39 | disposition home or self-care (01) | DRG 885 ==
LOC: 3MHU 14:10 → UNDOADMIN 14:10 → 3MHU 19:03
PROVIDERS: ADMIT Psychiatry & Neurology Psychiatry; ATTEND Psychiatry & Neurology Psychiatry
DX: F33.3 Major depressive disorder, recurrent, severe with psychotic symptoms (principal); F10.239 Alcohol dependence with withdrawal, unspecified; R45.851 Suicidal ideations; F20.9 Schizophrenia, unspecified; F31.9 Bipolar disorder, unspecified; F43.10 Post-traumatic stress disorder, unspecified; F60.89 Other specific personality disorders; I10 Essential (primary) hypertension; Z79.899 Other long term (current) drug therapy; Z91.410 Personal history of adult physical and sexual abuse; Z91.51 Personal history of suicidal behavior
CPT/HCPCS: 80061; 80076; 83036; 84484; 93005

== ENCOUNTER 2022-04-14 02:34 | Emergency (ER) | payer OTHER ==
[2022-04-14 02:40] VITALS: RESP 18; TEMP 97.6
[2022-04-14] MEDS ORDERED: BUPIVACAINE (PF) 0.5% 30 ML VIAL SQ STA (02:42)
[2022-04-14] MEDS ORDERED: LIDOCAINE/EPINEPHR/TETRACAINE 5 ML BOTTLE TOPICAL ONE (02:44)
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
--- NOTE | 2022-04-14 03:40 | CT ---
EXAMINATION TYPE: CT facial bones wo con DATE OF EXAM: 04/14/2022 COMPARISON: 04/02/2022 HISTORY: FACIAL LACERATION TO FOREHEAD CT DLP: 483.5 mGycm Automated exposure control for dose reduction was used. Images obtained from the bottom of the mandible to the top of the frontal sinuses with no contrast. The mandibular ring is intact. The temporomandibular joints are intact. Maxilla is intact. There is m ucosal thickening in the left maxillary sinus and anterior ethmoid sinuses. There is comminuted fract ure of the nasal bone. There is soft tissue air around the nasal bone. There is frontal scalp soft ti ssue swelling. No evidence of orbital blowout fracture. No evidence of retro-orbital mass. Orbital ma rgins are intact. IMPRESSION: Nasal bone fracture with soft tissue air bubbles. Soft tissue air increased compared to old exam. Fra cture fragments not significantly changed in position. There is mucosal thickening in the left maxillary sinus and ethmoid sinus increased compared to the o ld exam. There is mild frontal scalp soft tissue swelling increased compared to old exam.
[2022-04-14] MEDS ORDERED: AMOXICILLIN 500MG STARTER PACK 3 CAP BTL PO STA (03:47)
[2022-04-14] MEDS ORDERED: ACET/COD 300 MG/30 MG STARTER PACK 6 TAB BTL PO STA (03:47)
[2022-04-14] MEDS ORDERED: BACITRACIN OINT 1 EACH PACKET TOPICAL ONE (03:48)
[2022-04-14 04:06] VITALS: BP 152/97; PULSE 86
== END 2022-04-14 04:06 | disposition home or self-care (01) ==
LOC: EC 02:34
DX: S01.81XA Laceration without foreign body of other part of head, initial encounter (principal); S02.2XXA Fracture of nasal bones, initial encounter for closed fracture; Z87.820 Personal history of traumatic brain injury; I10 Essential (primary) hypertension; F41.9 Anxiety disorder, unspecified; F31.9 Bipolar disorder, unspecified; F12.90 Cannabis use, unspecified, uncomplicated; Z88.8 Allergy status to other drugs, medicaments and biological substances; W01.198A Fall on same level from slipping, tripping and stumbling with subsequent striking against other object, initial encounter
CPT/HCPCS: 12014; 70486; 99284

== ENCOUNTER 2022-04-14 22:47 | Emergency (ER) | payer OTHER ==
[2022-04-14 22:58] VITALS: BP 152/107; PULSE 86; RESP 16; TEMP 97.2
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
[2022-04-14] MEDS ORDERED: diphenhydrAMINE 50 MG/ML 1 ML VIAL IM STA (23:10)
[2022-04-14] MEDS ORDERED: HALOPERIDOL LACTATE 5 MG/ML 1 ML VIAL IM STA (23:10)
== END 2022-04-15 05:30 | disposition home or self-care (01) ==
LOC: EC 22:47
DX: F10.129 Alcohol abuse with intoxication, unspecified (principal); I10 Essential (primary) hypertension; Z88.8 Allergy status to other drugs, medicaments and biological substances
CPT/HCPCS: 99285; 96372; J1200; J1630

== ENCOUNTER 2022-05-23 21:57 | Emergency (ER) | payer OTHER ==
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
[2022-05-23 22:14] VITALS: BP 138/97; PULSE 105; RESP 18; TEMP 98.8
== END 2022-05-23 22:15 | disposition home or self-care (01) ==
LOC: EC 21:57
DX: F10.929 Alcohol use, unspecified with intoxication, unspecified (principal); I10 Essential (primary) hypertension; F41.9 Anxiety disorder, unspecified; F31.9 Bipolar disorder, unspecified; F12.90 Cannabis use, unspecified, uncomplicated; F15.10 Other stimulant abuse, uncomplicated; F11.90 Opioid use, unspecified, uncomplicated; Z88.8 Allergy status to other drugs, medicaments and biological substances; Z79.899 Other long term (current) drug therapy
CPT/HCPCS: 99283

== ENCOUNTER 2024-01-05 18:12 | Emergency (ER) | payer OTHER | END 2024-01-05 19:37 | disposition left against medical advice (07) | LOC: EC 18:12 | CPT/HCPCS: 99499 ==

== ENCOUNTER 2024-01-30 20:10 | Emergency (ER) | payer MEDICAID, OTHER ==
[2024-01-30 20:37] VITALS: TEMP 98.2
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
[2024-01-30] MEDS: KETOROLAC 15 MG/ML 1 ML VIAL IM STA (21:07)
[2024-01-30 21:46] VITALS: BP 125/74; PULSE 83; RESP 18
== END 2024-01-30 21:20 | disposition home or self-care (01) ==
LOC: EC 20:10
DX: G56.02 Carpal tunnel syndrome, left upper limb (principal); Z88.8 Allergy status to other drugs, medicaments and biological substances; W23.0XXA Caught, crushed, jammed, or pinched between moving objects, initial encounter
CPT/HCPCS: 99283; 96372; J1885